=== PATIENT | female | born 2000 ===

== ENCOUNTER 2021-06-22 00:27 | Emergency (ER) ==
[~2021-06-22] VITALS: Ht 160 cm; Wt 77.2 kg
[2021-06-22] MEDS ORDERED: JOLETAB PO (00:33)
== END 2021-06-22 05:18 | disposition left against medical advice (07) ==
LOC: M ED 00:27
DX: Z53.21 Procedure and treatment not carried out due to patient leaving prior to being seen by health care provider (principal)

== ENCOUNTER 2022-04-07 00:26 | Outpatient (CLI) ==
[~2022-04-07 00:26] MED LIST: JOLETAB PO
[2022-04-07 00:49] VITALS: BP 109/69
[2022-04-07 02:49] VITALS: BP 109/69
[2022-04-07 03:23] VITALS: BP 108/71
[2022-04-07 04:29] LABS: HEMATOCRIT 30.9 % (36.0-47.0); HEMOGLOBIN 10.8 g/dl (12.0-15.5); MEAN CORPUSCULAR HEMOGLOBIN 25.2 pg (27.0-33.0); PLATELET COUNT, AUTOMATED 249 10^3/uL (150-450); RED BLOOD COUNT 4.29 10^6/uL (4.00-5.40); WHITE BLOOD COUNT 8.5 10^3/uL (4.0-10.0)
[2022-04-07 04:50] LABS: ALBUMIN 2.7 GM/DL (3.2-5.2); ALT/SGPT 13 U/L (12-78); BILIRUBIN,TOTAL 0.5 MG/DL (0.2-1.0); BLOOD UREA NITROGEN 4 MG/DL (7-18); CALCIUM LEVEL 8.9 MG/DL (8.5-10.1); CARBON DIOXIDE LEVEL 21 MEQ/L (21-32); CHLORIDE LEVEL 107 MEQ/L (98-107); CREATININE FOR GFR 0.54 MG/DL (0.55-1.30); GLOMERULAR FILTRATION RATE > 60.0 (>60); GLUCOSE, FASTING 86 MG/DL (70-100); POTASSIUM SERUM 4.1 MEQ/L (3.5-5.1); SODIUM LEVEL 139 MEQ/L (136-145); TOTAL PROTEIN 6.4 GM/DL (6.4-8.2)
== END 2022-04-07 05:05 | disposition home or self-care (01) ==
LOC: M LDO 00:26
PROVIDERS: ATTEND Obstetrics & Gynecology
DX: O47.03 False labor before 37 completed weeks of gestation, third trimester (principal); Z3A.36 36 weeks gestation of pregnancy
CPT/HCPCS: 36415; 59025; 76815; 80053; 84484; 85027; 93005; G0463

== ENCOUNTER 2022-05-02 09:49 | Inpatient (IN) | payer OTHER ==
[2022-05-02] VITALS (10 sets, daily range): BP systolic 108–141; BP diastolic 63–94
[~2022-05-02] VITALS: Ht 160 cm; Wt 88.8 kg
[2022-05-02] MEDS ORDERED: PRENTAB9 PO (10:14)
[2022-05-02] MEDS ORDERED: HOME MED LIST COMPLETE! XX SCH (10:25)
[2022-05-02 11:04] LABS: HEMATOCRIT 31.5 % (36.0-47.0); HEMOGLOBIN 10.7 g/dl (12.0-15.5); MEAN CORPUSCULAR HEMOGLOBIN 23.6 pg (27.0-33.0); MEAN CORPUSCULAR VOLUME 69.5 fl (80.0-96.0); PLATELET COUNT, AUTOMATED 252 10^3/uL (150-450); RED BLOOD COUNT 4.53 10^6/uL (4.00-5.40); WHITE BLOOD COUNT 9.4 10^3/uL (4.0-10.0)
[2022-05-02] MEDS ORDERED: METHYLERGONOVINE MALEATE 0.2 MG/ML VIAL (J2210) IM PRN (15:00)
[2022-05-02] MEDS ORDERED: OXYTOCIN DRIP 30 UNITS in IV 1 EA IV PRN ×4 (15:00)
[2022-05-02] MEDS ORDERED: LIDOCAINE 1% MDV 20ML VIAL INFIL PRN (15:00)
[2022-05-02] MEDS ORDERED: OXYTOCIN DRIP 30 UNITS in IV 1 EA IV SCH (19:55)
[2022-05-02] MEDS ORDERED: LR 1,000 ML IV SCH (19:55)
[2022-05-03] VITALS (62 sets, daily range): BP systolic 85–197; BP diastolic 49–101
[2022-05-03] MEDS ORDERED: PROMETHAZINE 25MG/ML 1ML VIAL IV ONE
[2022-05-03] MEDS ORDERED: BUTORPHANOL 2 MG/ML INJ (J0595) IV ONE
[2022-05-03] MEDS ORDERED: fentaNYL 100 MCG/2 ML INJECTION As Ordered ONE (03:47)
[2022-05-03] MEDS ORDERED: FENTANYL 2MCG/ML ROPIVACAINE 0.2% IN 0.9% NACL 100ML IVBAG As Ordered ONE (03:48)
[2022-05-03] MEDS ORDERED: diphenhydrAMINE 50MG/ML VIAL (J1200) IV PRN (03:55)
[2022-05-03] MEDS ORDERED: LR 500 ML IV PRN (03:55)
[2022-05-03] MEDS ORDERED: ePHEDrine SULFATE 25 MG/5 ML(5MG/ML) SYRINGE IVP PRN (03:55)
[2022-05-03] MEDS ORDERED: ONDANSETRON 4MG 2ML VIAL IV PRN (03:55)
[2022-05-03] MEDS ORDERED: FENTANYL/ROPIVACAINE/NACL BAG 100 ML EPIDURAL SCH (03:55)
[2022-05-03] MEDS ORDERED: EPIDURAL/PCA KEYS XX PRN (03:55)
[2022-05-03] MEDS ORDERED: NALOXONE INJ 0.4MG/1ML VIAL (J2310 PER 1MG) IV PRN (03:55)
[2022-05-03] MEDS ORDERED: ACETAMINOPHEN 500 MG TAB PO PRN (14:55)
[2022-05-03] MEDS ORDERED: DIBUCAINE 1% OINTMENT 30GM TOP PRN (14:55)
[2022-05-03] MEDS ORDERED: DOCUSATE SODIUM 100MG CAPSULE PO PRN (14:55)
[2022-05-03] MEDS ORDERED: MOM 30ML SUSPENSION UDC PO PRN (14:55)
[2022-05-03] MEDS: IBUPROFEN 800 MG TAB PO PRN (16:45)
[2022-05-04] MEDS: IBUPROFEN 800 MG TAB PO PRN (05:11)
[2022-05-04 06:00] VITALS: BP 117/72
[2022-05-04] MEDS: PRENATAL VITAMINS CHEWABLE TABLET PO SCH (08:08)
[2022-05-04 08:50] LABS: BASO # 0.1 10^3/uL (0.0-0.2); BASO % 0.3 % (0.0-1.0); EOS # 0.1 10^3/uL (0.0-0.5); EOS % 0.5 % (0.0-3.0); HEMATOCRIT 25.3 % (36.0-47.0); HEMOGLOBIN 8.8 g/dl (12.0-15.5); LYMPH # 2.7 10^3/uL (1.5-5.0); LYMPH % 16.7 % (24.0-44.0); MEAN CORPUSCULAR HEMOGLOBIN 23.9 pg (27.0-33.0); MEAN CORPUSCULAR HGB CONC 34.8 g/dl (32.0-36.5); MEAN CORPUSCULAR VOLUME 68.8 fl (80.0-96.0); MONO # 1.1 10^3/uL (0.0-0.8); MONO % 6.7 % (2.0-8.0); NEUTROPHILS # 12.4 10^3/uL (1.5-8.5); NEUTROPHILS % 75.5 % (36.0-66.0); PLATELET COUNT, AUTOMATED 239 10^3/uL (150-450); RED BLOOD COUNT 3.68 10^6/uL (4.00-5.40); WHITE BLOOD COUNT 16.4 10^3/uL (4.0-10.0)
[2022-05-04 09:02] LABS: ALT/SGPT 11 U/L (12-78); BILIRUBIN,TOTAL 0.4 MG/DL (0.2-1.0); CREATININE FOR GFR 0.59 MG/DL (0.55-1.30); GLOMERULAR FILTRATION RATE > 60.0 (>60); LDH LACTATE DEHYDROGENASE 215 U/L (84-246); URIC ACID 3.7 MG/DL (2.6-6.0)
[2022-05-04 18:00] VITALS: BP 134/86
[2022-05-05] MEDS: IBUPROFEN 800 MG TAB PO PRN (01:04)
[2022-05-05 06:00] VITALS: BP 117/73
[2022-05-05] MEDS ORDERED: PRENCHW PO (07:53)
[2022-05-05] MEDS ORDERED: COLA100C5 PO (07:53)
[2022-05-05] MEDS ORDERED: IBUP80TA PO (07:53)
[2022-05-05] MEDS: PRENATAL VITAMINS CHEWABLE TABLET PO SCH (08:36)
[2022-05-05] MEDS ORDERED: MEASLES,MUMPS,RUBELLA VACCINE INJ (MMR-II) (90707) SC.IMMUN ONE (09:00)
== END 2022-05-05 09:30 | disposition home or self-care (01) | DRG 807 ==
LOC: M LDO 09:49 → M LDI 10:31 → M OBS 05-03 17:49
PROVIDERS: ADMIT Obstetrics & Gynecology; ATTEND Obstetrics & Gynecology
PROC: 10E0XZZ Delivery of Products of Conception, External Approach (ICD-10-PCS; principal; 2022-05-03)
PROC: 0HQ9XZZ Repair Perineum Skin, External Approach (ICD-10-PCS; 2022-05-03)
DX: O70.0 First degree perineal laceration during delivery (principal); Z37.0 Single live birth; Z3A.39 39 weeks gestation of pregnancy; O69.81X0 Labor and delivery complicated by cord around neck, without compression, not applicable or unspecified